=== PATIENT | female | born 1965 | race Caucasian/White ===

== ENCOUNTER 2018-06-04 07:18 | Emergency (ER) | payer OTHER, SELFPAY ==
[2018-06-04 07:47] LABS: Eosinophils % 1.4 % (0-4.4); Hematocrit 38.9 % (36.0-45.0); Lymphocytes % 40.8 % (15.3-44.8); MCH 30.9 pg (27.0-35.0); MCV 91.1 fL (80-100); MPV 9.2 fL (7.6-11.3); Monocytes % 5.6 % (3.3-12.3); RBC Red Blood Cell Count 4.27 M/uL (3.86-4.86)
[2018-06-04 07:48] LABS: Absolute Monocytes 0.5 K/uL (0.1-1.3); Basophils % 0.6 % (0-1.3)
[2018-06-04 07:53] LABS: Protime INR 1.02
--- NOTE | 2018-06-04 08:21 | RAD REPORT ---
EXAM DESCRIPTION: CT - [id number] - 06/04/2018 8:09 am CLINICAL HISTORY: Fall, blunt force trauma to the forehead COMPARISON: None. TECHNIQUE: Axial 5 mm thick images of the head were obtained. Axial 2 mm thick images of the cervic al spine were obtained with sagittal and coronal reconstruction images generated and reviewed. All CT scans are performed using dose optimization technique as appropriate and may include automated exposure control or mA/KV adjustment according to patient size. FINDINGS: No intracranial hemorrhage, mass, edema or acute intracranial finding. Ventricles are normal. No extr a-axial fluid collections. Mastoid air cells and paranasal sinuses are clear. No globe or orbit abnor mality seen. Patient has a large hematoma overlying the midline and left-side frontal bone orbits and nasal bone. Cervical bodies are normal in height. No subluxation abnormality. Mild kyphotic curvature is probably positional. Mild disc space narrowing at C4-5 and C5-6. Patient has advanced for age degenerative ch noam involving the end plates and uncovertebral joints. There is left foraminal stenosis at C4-5. Mil d bilateral foraminal stenosis at C5-6. Endplate spurring causes spinal stenosis at C5-6 and borderli ne at C4-5. No fracture or acute bony abnormality. No pathologic bone process. Central canal detail i s inherently limited. No paraspinal mass or hematoma. IMPRESSION: Large scalp hematoma overlying the frontal bone orbital ridge is and nasal bone. No acut e intracranial finding. Advanced for age cervical spine degenerative change as detailed. No fracture or acute finding. Centr al canal detail is inherently limited.
[2018-06-04] MEDS ORDERED: ONDANSETRON 4 MG/2 ML VIAL ONE (08:34)
[2018-06-04] MEDS ORDERED: FENTANYL CITR 100 MCG/2 ML ONE ×2 (08:34→10:04)
[2018-06-04] MEDS ORDERED: CLINDAMYCIN 900MG/D5W 900 MG/50 ML BAG IV ONE (09:11)
--- NOTE | 2018-06-04 09:12 | ER ---
Nurse's Notes [facility] Name: Sharri Parekh Age: 52 yrs Sex: Female : 1965 Arrival Date: 06/04/2018 Time: 07:21 Bed 3 Private MD: Diagnosis: CLosed head injury, forehead hematoma, open fracture dislocation left wrist, comminuted open fracture to distal left radius Presentation: 06/04 07:14 Transition of care: patient was not received from another setting of care. Onset of ss symptoms was June 04, 2018. Risk Assessment: Do you want to hurt yourself or someone else? Patient reports no desire to harm self or others. Initial Sepsis Screen: Does the patient meet any 2 criteria? No. Patient's initial sepsis screen is negative. Does the patient have a suspected source of infection? No. Patient's initial sepsis screen is negative. 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 Dressing and splint noted to L wrist. EMS reports compound fracture was noted. Large amount of swelling noted to L side of forehead. Pt denies LOC. Care prior to arrival: Medication(s) given: Zofran 4 mg and Nubain 10 mg given IVP by EMS IV initiated. 18 GA, in the right antecubital area. Mechanism of Injury: Fall approximately 5 feet. Trauma event details: Injury occurred in the [facility], Injury occurred: in a public building. Injury occurred: June 04, 2018 Injury occurred at: 07:00. 07:15 Acuity: ADEBAYO 1 07:15 Method Of Arrival: EMS: [facility] Triage Assessment: 07:18 General: Appears uncomfortable, Behavior is calm, cooperative, Denies feeling ill, ss fatigue, chills. Pain: Complains of pain in L wrist and L side of forehead Pain currently is 7 out of 10 on a pain scale. at worst was 10 out of 10 on a pain scale. Quality of pain is described as aching, tender, throbbing, Pain began suddenly, Is continuous, Aggravated by repositioning. EENT: Ear canal clear on left ear and right ear Nares are clear Oral mucosa is moist. Throat is clear Denies ringing blurred vision photophobia nasal discharge. Neuro: Level of Consciousness is awake, drowsy. Oriented to person, place, time, situation, Patient Appointment Coordinator are equal bilaterally Pupils are PERRLA. Cardiovascular: Reports fatigue, Denies chest pain, palpitations, shortness of breath, Heart tones S1 S2 present Capillary refill is sluggish in left fingers Pulses weak pulse noted to L wrist Rhythm is sinus bradycardia. Respiratory: Airway is patent Trachea midline Respiratory effort is even, unlabored, Respiratory pattern is regular, symmetrical, Breath sounds are clear bilaterally. Denies cough, shortness of breath labored breathing, pain with respiration, pain with cough, pain with movement, air hunger. GI: Patient currently denies abdominal pain, vomiting. : No signs and/or symptoms were reported regarding the genitourinary system. Derm: Skin small abrasion noted to L side of forehead and L knee Skin is clammy, Skin is pink, Skin temperature is cool. Musculoskeletal: Range of motion: limited in left wrist. Trauma Activation: Alert Physician: ED Physician; Name: ; Notified At: ; Arrived At: Physician: General Surgeon; Name: ; Notified At: ; Arrived At: Physician: Radiology; Name: ; Notified At: ; Arrived At: Physician: Respiratory; Name: ; Notified At: ; Arrived At: Physician: Lab; Name: ; Notified At: ; Arrived At: Historical: - Allergies: 07:48 PENICILLINS; ss - Home Meds: 07:48 None [Active]; ss - PMHx: 07:48 Depression; Hypertension; ss - PSHx: 07:48 Hysterectomy; Cholecystectomy; Hernia repair; ss - Immunization history: Last tetanus immunization: unknown. - Social history:: Smoking status: Patient/guardian denies using tobacco. - Ebola Screening: : Patient denies exposure to infectious person Patient denies travel to an Ebola-affected area in the 21 days before illness onset. Screenin:15 Abuse screen: Denies threats or abuse. Denies injuries from another. Tuberculosis ss screening: Never had TB. 08:16 Nutritional screening: No deficits noted. Fall Risk Fall in past 12 months (25 points). ph No secondary diagnosis (0 pts). IV access (20 points). Ambulatory Aid- None/Bed Rest/Nurse Assist (0 pts). Gait- Normal/Bed Rest/Wheelchair (0 pts) Mental Status- Oriented to own ability (0 pts). Total Elliott Fall Scale indicates High Risk Score (45 or more points). Fall prevention measures have been instituted. Side Rails Up X 2 Placed Close to Nursing Station Frequent Obs/Assessments Occuring As available patient and family educated on Fall Prevention Program and Strategies. Primary Survey: 07:15 A: Airway: patent, No supplemental oxygen in use on arrival. Oral cavity: clear, ss Trachea midline. 2L O2 applied to patient upon arrival. Breathing/Chest: Respiratory pattern:. Circulation: Cardiac rhythm: sinus bradycardia Heart tones present. Pulses: palpable right radial artery, right posterior tibial artery, left radial artery and left posterior tibial artery. Skin color: pink, Skin temperature: cool. Disability Alert. 10:11 Reassessment Breathing/Chest Respiratory pattern Regular Respiratory effort Spontaneous ph Unlabored Breath sounds Clear Disability Alert. Secondary Survey: 07:15 HEENT: Face Other significant edema noted to L side of forehead Eyes: No injury or ss deformity noted. Ears: clear Nose: clear Throat: is clear. : No deficits noted. No signs and/or symptoms were reported regarding the genitourinary system. Musculoskeletal: compound fracture noted to L wrist. Splint and dressing in place. Assessment: 07:53 Reassessment: Pt to CT via stretcher, NS infusing, Chiqui Figueroa, BETI with patient to CT on monitors. 08:03 Reassessment: SEE TRAUMA/ TRIAGE ASSESSMENT. 08:03 Reassessment: Pt back from CT at this time, moved to trauma room 3. 08:23 Reassessment: Patient appears in no apparent distress at this time. Patient and/or ph family updated on plan of care and expected duration. Pain level reassessed. 09:00 Reassessment: Patient appears in no apparent distress at this time. Patient and/or ph family updated on plan of care and expected duration. Pain level reassessed. Patient is alert, oriented x 3, equal unlabored respirations, skin warm/dry/pink. Sugar tong splint placed to L wrist, pt tolerated well, VSS at this time, awaiting transfer to [place], friend at bedside. Injury Description: Deformity sustained to left wrist is displaced, protruding, with bone exposed. 09:40 Reassessment: Patient appears in no apparent distress at this time. Patient and/or ph family updated on plan of care and expected duration. Pain level reassessed. Patient is alert, oriented x 3, equal unlabored respirations, skin warm/dry/pink. Pt resting quietly, VSS, report called to [facility], awaiting EMS for transport. 10:11 Reassessment: Patient appears in no apparent distress at this time. Patient and/or ph family updated on plan of care and expected duration. Pain level reassessed. Patient is alert, oriented x 3, equal unlabored respirations, skin warm/dry/pink. [facility] EMS at bedside, pt transferred to [facility]. Vital Signs: 07:15 BP 97 / 66; Pulse 47; Resp 15; Temp 97.6(O); Pulse Ox 95% on R/A; Weight 115.67 kg; ss Height 5 ft. 5 in. (165.10 cm); Pain 7/10; 08:19 BP 135 / 65; Pulse 56; Resp 14; Pulse Ox 100% on R/A; ph 09:03 BP 124 / 92; Pulse 62; Resp 14; Pulse Ox 98% on R/A; ph 10:11 BP 134 / 89; Pulse 61; Resp 18; Temp 97.8; Pulse Ox 99% on R/A; ph 07:15 Body Mass Index 42.43 (115.67 kg, 165.10 cm) ss [place] Coma Score: 07:15 Eye Response: spontaneous(4). Verbal Response: oriented(5). Motor Response: obeys ss commands(6). Total: 15. 08:19 Eye Response: spontaneous(4). Verbal Response: oriented(5). Motor Response: obeys ph commands(6). Total: 15. 09:03 Eye Response: spontaneous(4). Verbal Response: oriented(5). Motor Response: obeys ph commands(6). Total: 15. 10:11 Eye Response: spontaneous(4). Verbal Response: oriented(5). Motor Response: obeys ph commands(6). Total: 15. Trauma Score (Adult): 07:15 Eye Response: spontaneous(1); Verbal Response: oriented(1); Motor Response: obeys ss commands(2); Systolic BP: > 89 mm Hg(4); Respiratory Rate: 10 to 29 per min(4); [place] Score: 15; Trauma Score: 12 08:19 Eye Response: spontaneous(1); Verbal Response: oriented(1); Motor Response: obeys ph commands(2); Systolic BP: > 89 mm Hg(4); Respiratory Rate: 10 to 29 per min(4); Rudy Score: 15; Trauma Score: 12 09:03 Eye Response: spontaneous(1); Verbal Response: oriented(1); Motor Response: obeys ph commands(2); Systolic BP: > 89 mm Hg(4); Respiratory Rate: 10 to 29 per min(4); [place] Score: 15; Trauma Score: 12 10:11 Eye Response: spontaneous(1); Verbal Response: oriented(1); Motor Response: obeys ph commands(2); Systolic BP: > 89 mm Hg(4); Respiratory Rate: 10 to 29 per min(4); Rudy Score: 15; Trauma Score: 12 ED Course: 07:15 Maintain EMS IV. Dressing intact. Good blood return noted. Site clean \T\ dry. Gauge \T\ ss site: 18 gauge R AC. Oxygen administration via nasal cannula \T\ 2L/min. Thermoregulation: Pt refused warm blanket. 07:15 Patient has correct armband on for positive identification. Bed in low position. Side ss rails up X 1. Oxygen administration via nasal cannula \T\ 2L/min. cardiac monitor technician on. Pulse ox on. NIBP on. 07:18 Arm band placed on right wrist. ss 07:21 Patient arrived in ED. fc 07:22 Kehinde Weinberg MD is Attending Physician. kdr 07:31 Chiqui Mendes, RN is Primary Nurse. rb1 07:40 CBC with Diff Sent. ss 07:40 Chem 7 Sent. ss 07:47 Triage completed. ss 07:48 Forearm Left XRAY In Process Unspecified. EDMS 07:48 CXR XRAY In Process Unspecified. EDMS 08:03 CT completed. Patient moved to CT via stretcher. Patient moved back from CT. cw1 08:09 CT Head C Spine In Process Unspecified. EDMS 08:22 Primary Nurse role handed off by Chiqui Mendes, RN ph 08:22 Pilar Carrillo, RN is Primary Nurse. ph 08:29 EKG done, by ED staff, reviewed by Kehinde Weinberg MD. em1 08:56 initiated transfer with Mary Ann at the [facility]. [phone]. eb 08:57 Orthoglass splint: Sugar tong splint applied on left arm. Sling applied to left arm. em1 09:13 connected ED doc with a trauma Doctor from [facility]. eb 09:15 administrative approval given by Gail Olvera Trim Mounter/ Patient going to the ER / Dr. Ghosh has accepted the patient in transfer/ number for report is [phone]. 10:13 No provider procedures requiring assistance completed. Patient transferred, IV remains ph in place. Administered Medications: 07:40 Drug: NS 0.9% 500 ml Route: IV; Rate: bolus; Site: right antecubital; ss 08:35 Drug: fentaNYL (PF) 50 mcg Route: IVP; Site: right antecubital; ph 08:35 Drug: Zofran 4 mg Route: IVP; Site: right antecubital; ph 08:45 Drug: fentaNYL (PF) 50 mcg Route: IVP; Site: right antecubital; ph 08:57 CANCELLED (Duplicate Order): fentaNYL (PF) 50 mcg IVP once ph 09:16 Drug: Clindamycin 900 mg Route: IVPB; Infused Over: 30 mins; Site: right antecubital; ph 09:21 Not Given (Other Intervention Used): LevaQUIN 500 mg 100 ml IVPB once over 60 mins ph 10:11 Drug: fentaNYL (PF) 50 mcg Route: IVP; Site: right antecubital; ph Intake: 08:17 IV: 500ml (IV Fluid); Total: 500ml. ph 10:11 PO: 0ml; Total: 500ml. ph 10:11 PO: 0ml; Total: 500ml. ph Output: 10:11 Urine: 0ml; Total: 0ml. ph 10:11 Urine: 0ml; Total: 0ml. ph Outcome: 09:11 ER care complete, transfer ordered by . kdr 10:13 Patient left the ED. ph 10:13 Transferred by ground EMS to [facility], Transfer form completed. X-rays sent ph w/ patient. 10:13 Condition: stable 10:13 Instructed on the need for transfer. 10:13 Patient's length of stay was not longer than 2 hours. 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 Dressing and splint noted to L wrist. EMS reports compound fracture was noted. Large amount of swelling noted to L side of forehead. Pt denies LOC 08: 07:15 Care prior to arrival: IV initiated. 18 GA, in the right antecubital area, [facility] 08 07:15 Method Of Arrival: EMS: [facility] : 09:03 BP 124 / 110; Pulse 62bpm; Resp 14bpm; Pulse Ox 98% RA; ph ph 09:43 11/06 14:30 NS 0.9% 500 ml IV at bolus in right antecubital [facility] 06/04 10:13 09:03 IV 500, (IV Fluid), Intake Total 500. ph ph
--- NOTE | 2018-06-04 09:12 | EDPHYS ---
Physician Documentation [facility] Name: Sharri Parekh Age: 52 yrs Sex: Female : 1965 Arrival Date: 06/04/2018 Time: 07:21 Bed 3 Private MD: ED Physician Kehinde Weinberg HPI: 06/04 07:30 This 52 yrs old Female presents to ER via Unassigned with complaints of Pain kdr to forehead and left wrist. 07:30 Details of fall: The patient fell from a height, [place]. Stepped out and fell to kdr the ground. Denies LOC. Onset: The symptoms/episode began/occurred suddenly, just prior to arrival, 1 hour(s) ago. Associated injuries: The patient sustained injury to the head, dorsal aspect of left forearm, left wrist and palmar aspect of left forearm. Severity of symptoms: At their worst the symptoms were severe, just prior to arrival, incapacitating, in the emergency department the symptoms are unchanged. The patient has not experienced similar symptoms in the past. The patient has not recently seen a physician. Historical: - Allergies: 07:48 PENICILLINS; ss - Home Meds: 07:48 None [Active]; ss - PMHx: 07:48 Depression; Hypertension; ss - PSHx: 07:48 Hysterectomy; Cholecystectomy; Hernia repair; ss - Immunization history: Last tetanus immunization: unknown. - Social history:: Smoking status: Patient/guardian denies using tobacco. - Ebola Screening: : Patient denies exposure to infectious person Patient denies travel to an Ebola-affected area in the 21 days before illness onset. ROS: 07:30 Constitutional: Negative for fever, chills, and weight loss, Eyes: Negative for injury, kdr pain, redness, and discharge, ENT: Negative for injury, pain, and discharge, Neck: Negative for injury, pain, and swelling, Cardiovascular: Negative for chest pain, palpitations, and edema, Respiratory: Negative for shortness of breath, cough, wheezing, and pleuritic chest pain, Abdomen/GI: Negative for abdominal pain, nausea, vomiting, diarrhea, and constipation, Back: Negative for injury and pain, : Negative for injury, bleeding, discharge, and swelling, Skin: Negative for injury, rash, and discoloration, Neuro: Negative for headache, weakness, numbness, tingling, and seizure activity. Psych: Negative for depression, anxiety, suicide ideation, homicidal ideation, and hallucinations, Allergy/Immunology: Negative for hives, rash, and allergies, Endocrine: Negative for neck swelling, polydipsia, polyuria, polyphagia, and marked weight changes, Hematologic/Lymphatic: Negative for swollen nodes, abnormal bleeding, and unusual bruising. 07:30 MS/extremity: Positive for injury or acute deformity, decreased range of motion, deformity, pain, swelling, tenderness, of the dorsal aspect of left forearm, left wrist and palmar aspect of left forearm. Exam: 07:30 Constitutional: This is a well developed, well nourished patient who is awake, alert, kdr and in mild to moderate distress. Head/Face: Normocephalic, very large hematoma to left forehead Eyes: Pupils equal round and reactive to light, extra-ocular motions intact. Lids and lashes normal. Conjunctiva and sclera are non-icteric and not injected. Cornea within normal limits. Periorbital areas with no swelling, redness, or edema. ENT: Nares patent. No nasal discharge, no septal abnormalities noted. Tympanic membranes are normal and external auditory canals are clear. Oropharynx with no redness, swelling, or masses, exudates, or evidence of obstruction, uvula midline. Mucous membranes moist. Neck: Trachea midline, no thyromegaly or masses palpated, and no cervical lymphadenopathy. Supple, full range of motion without nuchal rigidity, or vertebral point tenderness. No Meningismus. Chest/axilla: Normal chest wall appearance and motion. Nontender with no deformity. No lesions are appreciated. Cardiovascular: Regular rate and rhythm with a normal S1 and S2. No gallops, murmurs, or rubs. Normal PMI, no JVD. No pulse deficits. Respiratory: Lungs have equal breath sounds bilaterally, clear to auscultation and percussion. No rales, rhonchi or wheezes noted. No increased work of breathing, no retractions or nasal flaring. Abdomen/GI: Soft, non-tender, with normal bowel sounds. No distension or tympany. No guarding or rebound. No evidence of tenderness throughout. Back: No spinal tenderness. No costovertebral tenderness. Full range of motion. Skin: Warm, dry with normal turgor. Normal color with no rashes, no lesions, and no evidence of cellulitis. MS/ Extremity: Pulses equal, no cyanosis. Neurovascular intact. Limited ROM of left wrist. Appears to be possible open fracture to volar aspect of let wrist. N/v intact distal to the injury Neuro: Awake and alert, GCS 15, oriented to person, place, time, and situation. Cranial nerves II-XII grossly intact. Motor strength 5/5 in all extremities. Sensory grossly intact. Cerebellar exam normal. Normal gait. Psych: Awake, alert, with orientation to person, place and time. Behavior, mood, and affect are within normal limits. Vital Signs: 07:15 BP 97 / 66; Pulse 47; Resp 15; Temp 97.6(O); Pulse Ox 95% on R/A; Weight 115.67 kg; ss Height 5 ft. 5 in. (165.10 cm); Pain 7/10; 08:19 BP 135 / 65; Pulse 56; Resp 14; Pulse Ox 100% on R/A; ph 09:03 BP 124 / 92; Pulse 62; Resp 14; Pulse Ox 98% on R/A; ph 10:11 BP 134 / 89; Pulse 61; Resp 18; Temp 97.8; Pulse Ox 99% on R/A; ph 07:15 Body Mass Index 42.43 (115.67 kg, 165.10 cm) ss Bonesteel Coma Score: 07:15 Eye Response: spontaneous(4). Verbal Response: oriented(5). Motor Response: obeys ss commands(6). Total: 15. 08:19 Eye Response: spontaneous(4). Verbal Response: oriented(5). Motor Response: obeys ph commands(6). Total: 15. 09:03 Eye Response: spontaneous(4). Verbal Response: oriented(5). Motor Response: obeys ph commands(6). Total: 15. 10:11 Eye Response: spontaneous(4). Verbal Response: oriented(5). Motor Response: obeys ph commands(6). Total: 15. Trauma Score (Adult): 07:15 Eye Response: spontaneous(1); Verbal Response: oriented(1); Motor Response: obeys ss commands(2); Systolic BP: > 89 mm Hg(4); Respiratory Rate: 10 to 29 per min(4); Bonesteel Score: 15; Trauma Score: 12 08:19 Eye Response: spontaneous(1); Verbal Response: oriented(1); Motor Response: obeys ph commands(2); Systolic BP: > 89 mm Hg(4); Respiratory Rate: 10 to 29 per min(4); Bonesteel Score: 15; Trauma Score: 12 09:03 Eye Response: spontaneous(1); Verbal Response: oriented(1); Motor Response: obeys ph commands(2); Systolic BP: > 89 mm Hg(4); Respiratory Rate: 10 to 29 per min(4); Bonesteel Score: 15; Trauma Score: 12 10:11 Eye Response: spontaneous(1); Verbal Response: oriented(1); Motor Response: obeys ph commands(2); Systolic BP: > 89 mm Hg(4); Respiratory Rate: 10 to 29 per min(4); Rudy Score: 15; Trauma Score: 12 Procedures: 09:07 Splinting: Splint applied to dorsal aspect of left forearm, left wrist and palmar kdr aspect of left forearm using Orthoglass splint, sling, wrist splint, applied by tech. post reduction film - Examined by me, post splint application: neurovascular intact, Patient tolerated well. MDM: 07:53 Patient medically screened. kdr 09:07 Data reviewed: vital signs, nurses notes, lab test result(s), radiologic studies. kdr Counseling: I had a detailed discussion with the patient and/or guardian regarding: the historical points, exam findings, and any diagnostic results supporting the discharge/admit diagnosis, lab results, radiology results, the need to transfer to another facility. Physician consultation: Kevin Catherine MD was called at 08:40, was contacted at 08:40, regarding consult, patient's condition, after a discussion of the case, a recommendation for transfer for higher level of care is made. 06/04 07:25 Order name: CBC with Diff kdr 06/04 07:25 Order name: Chem 7 kdr 06/04 07:25 Order name: PT-INR kdr 06/04 07:25 Order name: CBC with Automated Diff; Complete Time: 07:59 EDMS 06/04 07:25 Order name: Basic Metabolic Panel; Complete Time: 08:22 EDMS 06/04 07:25 Order name: Protime (+INR); Complete Time: 07:59 EDMS 06/04 07:25 Order name: CT Head C Spine; Complete Time: 08:22 [facility] 06/04 07:25 Order name: Forearm Left XRAY [facility] 06/04 07:25 Order name: CXR XRAY [facility] 06/04 07:36 Order name: T\T\S eb 06/04 09:09 Order name: ABO/RH no charge EDIA 06/04 07:25 Order name: EKG Strip; Complete Time: 08:30 kdr 06/04 08:30 Order name: EKG; Complete Time: 08:30 em1 Administered Medications: 07:40 Drug: NS 0.9% 500 ml Route: IV; Rate: bolus; Site: right antecubital; ss 08:35 Drug: fentaNYL (PF) 50 mcg Route: IVP; Site: right antecubital; ph 08:35 Drug: Zofran 4 mg Route: IVP; Site: right antecubital; ph 08:45 Drug: fentaNYL (PF) 50 mcg Route: IVP; Site: right antecubital; ph 08:57 CANCELLED (Duplicate Order): fentaNYL (PF) 50 mcg IVP once ph 09:16 Drug: Clindamycin 900 mg Route: IVPB; Infused Over: 30 mins; Site: right antecubital; ph 09:21 Not Given (Other Intervention Used): LevaQUIN 500 mg 100 ml IVPB once over 60 mins ph 10:11 Drug: fentaNYL (PF) 50 mcg Route: IVP; Site: right antecubital; ph Disposition: 06/04/18 09:11 Transfer ordered to [facility]. Diagnosis is CLosed head injury, forehead hematoma, open fracture dislocation left wrist, comminuted open fracture to distal left radius. - Reason for transfer: Higher level of care. - Accepting physician is [facility]. - Condition is Fair. - Problem is new. - Symptoms have improved. Signatures: Dispatcher [employer] EDIA Kehinde Weinberg MD MD kdr Smirch, Shelby, RN RN Pilar Carrillo RN RN ph Corrections: (The following items were deleted from the chart) 08:57 08:57 fentaNYL (PF) 50 mcg IVP once ordered. ph ph 10:13 09:11 06/04/2018 09:11 Transfer ordered to [facility]. ph Diagnosis is CLosed head injury, forehead hematoma, open fracture dislocation left wrist, comminuted open fracture to distal left radius. Reason for transfer: Higher level of care. Accepting physician is [facility]. Condition is Fair. Problem is new. Symptoms have improved. kdr
--- NOTE | 2018-06-04 09:26 | EKG ---
Test Date: 2018-06-04 Test Time: 08:11:30 Child Care Leader: JAMARI MEASUREMENT RESULTS: Intervals: Rate: 52 WY: 152 QRSD: 104 QT: 448 QTc: 416 [place]: P: 46 WY: 152 QRS: -10 T: 14 INTERPRETIVE STATEMENTS: Sinus bradycardia Otherwise normal ECG Compared to ECG 05/18/2017 17:42:16 Sinus rhythm no longer present Left ventricular hypertrophy no longer present Electronically Signed On 06-04-18 09:25:58 CDT by Fredy Lau
--- NOTE | 2018-06-04 11:59 | RAD REPORT ---
EXAM DESCRIPTION: RAD - Chest Single View - 06/04/2018 7:48 am CLINICAL HISTORY: Trauma, fall, fracture, preop chest for fracture repair COMPARISON: May 2017 TECHNIQUE: AP portable chest image was obtained 0736 hours . FINDINGS: Lungs are clear. Heart and vasculature are normal. No measurable pleural effusion and no p neumothorax. No gross bony abnormality seen. No acute aortic findings suspected. IMPRESSION: No acute cardiopulmonary process. No significant interval change.
--- NOTE | 2018-06-04 12:51 | RAD REPORT ---
EXAM DESCRIPTION: RAD - Forearm Left - 06/04/2018 7:48 am CLINICAL HISTORY: Fall, wrist pain COMPARISON: None. FINDINGS: Comminuted distal radius fracture is present. There is dorsal displacement and angulation along with 40 degree dorsal angulation deformity. There is also lateral displacement of the distal fr acture fragment. Numerous small fracture fragments are present along the main transverse fracture [place] e of the distal radius. Ulna fracture is not identified. Carpal bones maintain positioning to the dis placed and dislocated distal radius fracture fragment. No acute carpal bone finding. No foreign body. IMPRESSION: Displaced, angulated and impacted distal radius fracture as detailed.
== END 2018-06-04 10:13 | disposition short-term general hospital (02) ==
LOC: ER 07:18
PROC: 2W3DX1Z Immobilization of Left Lower Arm using Splint (ICD-10-PCS; principal; 2018-06-04)
DX: S00.83XA Contusion of other part of head, initial encounter (principal); S62.102A Fracture of unspecified carpal bone, left wrist, initial encounter for closed fracture; S52.352B Displaced comminuted fracture of shaft of radius, left arm, initial encounter for open fracture type I or II; I10 Essential (primary) hypertension; W17.89XA Other fall from one level to another, initial encounter; Y93.9 Activity, unspecified; Y92.89 Other specified places as the place of occurrence of the external cause; Y99.9 Unspecified external cause status; Z88.0 Allergy status to penicillin
CPT/HCPCS: 36415; 70450; 71045; 72125; 80048; 85025; 85610; 86850; 86900; 86901; 93005; 96374; 96375; 99291; 99292; J2405; J3010